=== PATIENT | female | born 1995 | race African-American/Black ===

== ENCOUNTER 2017-02-05 13:27 | Emergency (ER) | payer MEDICAID ==
--- NOTE | 2017-02-05 14:01 | ER Document Report ---
ED Medical Screen (RME) - General Chief Complaint: Vaginal Pain Stated Complaint: PAIN IN BUTTOCK Time Seen by Provider: 02/05/17 13:58 Notes: This 21-year-old female patient comes emergency room complaining of lower abdominal pain for couple days it got worse today. She reports she had a discharge 1-2 weeks ago. LMP was end of December or beginning of January. Also complained of right breast pain. I have greeted and performed a rapid initial assessment of this patient. A comprehensive ED assessment and evaluation of the patient, analysis of test results and completion of the medical decision making process will be conducted by additional ED providers. TRAVEL OUTSIDE OF THE [place] IN LAST 30 DAYS: No Past Medical History Renal/ Medical History: Denies: Hx Peritoneal Dialysis Physical Exam - Vital signs Vitals: Temp Pulse Resp BP Pulse Ox 98.7 F 90 16 114/83 99 02/05/17 13:44 02/05/17 13:44 02/05/17 13:44 02/05/17 13:44 02/05/17 13:44 Course - Vital Signs Vital signs: Temp Pulse Resp BP Pulse Ox 98.7 F 90 16 114/83 99 02/05/17 13:44 02/05/17 13:44 02/05/17 13:44 02/05/17 13:44 02/05/17 13:44
[2017-02-05 15:14] LABS: APPEARANCE,URINE SLIGHTLY-CLOUDY; BILIRUBIN,URINE NEGATIVE (NEGATIVE); GLUCOSE, URINE NEGATIVE (NEGATIVE); KETONES,URINE NEGATIVE (NEGATIVE); LEUKOCYTE ESTERASE,URINE NEGATIVE (NEGATIVE); NITRITE,URINE NEGATIVE (NEGATIVE); PROTEIN,URINE NEGATIVE (NEGATIVE); URINE SPECIFIC GRAVITY 1.028; UROBILINOGEN,URINE NEGATIVE mg/dL (<2.0)
[2017-02-05 16:42] LABS: CHLAM PCR DETECTED (NOT DETECT)
--- NOTE | 2017-02-05 16:46 | ER Document Report ---
ED GI/ - General Chief Complaint: Vaginal Pain Stated Complaint: PAIN IN BUTTOCK Time Seen by Provider: 02/05/17 13:58 Notes: Patient is a 21-year-old female presents emergency department complaining of abdominal pain for the past 10 days. Patient states that she had unprotected intercourse 10 days ago and after that encounter had development of vaginal discharge and abdominal pain. Patient denies any pyuria, hematuria, urgency or hesitancy. Admits to nausea without vomiting. Denies any diarrhea constipation. Patient also admits to right breast tenderness without any evidence of redness, swelling, drainage. TRAVEL OUTSIDE OF THE [place] IN LAST 30 DAYS: No Past Medical History - Social History Smoking Status: Unknown if Ever Smoked Family History: Reviewed & Not Pertinent Patient has suicidal ideation: No Patient has homicidal ideation: No Renal/ Medical History: Denies: Hx Peritoneal Dialysis Review of Systems - Review of Systems Constitutional: No symptoms reported Cardiovascular: No symptoms reported Respiratory: No symptoms reported Gastrointestinal: See HPI Genitourinary: See HPI Female Genitourinary: See HPI Skin: See HPI Physical Exam - Vital signs Vitals: Temp Pulse Resp BP Pulse Ox 98.7 F 90 16 114/83 99 02/05/17 13:44 02/05/17 13:44 02/05/17 13:44 02/05/17 13:44 02/05/17 13:44 - General General appearance: Appears well, Alert In distress: None - Respiratory Respiratory status: No respiratory distress Chest status: Nontender Breath sounds: Normal Chest palpation: Normal - Cardiovascular Rhythm: Regular Heart sounds: Normal auscultation Murmur: No Pulses: Normal: Radial Normal capillary refill: Yes - Abdominal Inspection: Normal Distension: No distension Bowel sounds: Normal Tenderness: Nontender Organomegaly: No organomegaly - Genitourinary External exam: Normal. No: Lesions, Vesicles Speculum exam: Normal, Cervix closed, Vaginal discharge Vaginal bleeding: None Bimanuel exam: Normal - Skin Skin Temperature: Warm Skin Moisture: Dry Skin Color: Normal Skin Turgor: Elastic Skin irregularity: negative: Abscess, Erythema, Tender indurated area Course - Re-evaluation Re-evalutation: 02/05/17 16:46 Is a 21-year-old female hemodynamic stable, no distress afebrile. No evidence of urinary tract infection noted on urinalysis. Patient has a positive chlamydia, negative for gonorrhea. Wet mount does not show any evidence of yeast, Trichomonas with positive PPD. Patient treated for positive diagnoses. Patient educated on the sexual activity, to abstain from intercourse for the next 7 days to have her partner treated. Patient expressed understanding. - Vital Signs Vital signs: Temp Pulse Resp BP Pulse Ox 98.7 F 73 18 122/72 99 02/05/17 18:06 02/05/17 18:06 02/05/17 18:06 02/05/17 18:06 02/05/17 18:06 - Laboratory Laboratory results interpreted by me: 02/05/17 14:40 Chlamydia DNA (PCR) DETECTED H Discharge - Discharge Clinical Impression: Chlamydia, Bacterial vaginosis Condition: Good Disposition: HOME, SELF-CARE Instructions: Chlamydia ([facility]) Additional Instructions: VAGINITIS: Your exam shows that you have vaginitis, a vaginal infection. The infection can be caused by a many different organisms, including trichomonas or Gardnerella. The usual symptoms are vaginal irritation and discharge. The treatment is usually antibiotics such as Flagyl. Laboratory tests can determine which germ is responsible. Use the medication as prescribed. Because this infection can be transmitted sexually, your sexual partner may need to be checked and treated also. If your physician has not discussed this with you, please check before resuming sexual relations. If a culture shows gonorrhea or chlamydia, the infection must be reported to the health department. Call the doctor if you develop pelvic pain, fever, or problems with urination, or if you don't improve as expected. VAGINOSIS, BACTERIAL: Your exam shows you have bacterial vaginosis. This condition is due to an overgrowth of bacteria in the vagina. Symptoms may include vaginal itching or pain, a smelly discharge, and sometimes burning with urination. Normally this is not transmitted by sexual contact. Vaginosis can be treated with oral or topical antibiotics. Metronidazole ( Flagyl) pills are usually effective. Topical vaginal creams include Cleocin and Metro-Gel. You should avoid sexual contact until your symptoms are all better. Call the doctor if you develop pelvic pain, fever, or problems with urination, or if you don't improve as expected. ANTIBIOTIC THERAPY: You have been given an antibiotic prescription. It's important that you take all the medication, unless instructed otherwise by your physician. Failure to complete the entire course can result in relapse of your condition. Common side effects of antibiotics include nausea, intestinal cramping, or diarrhea. Women may develop vaginal yeast infections, and babies can get yeast (thrush) in the mouth following the use of antibiotics. Contact your physician if you develop significant side effects from this medication. Allergy to this antibiotic can result in hives, wheezing, faintness, or itching. If symptoms of allergy occur, stop the medication and call the doctor. AZITHROMYCIN: Azithromycin (Zithromax) is a broad spectrum antibiotic in the same class as erythromycin. It can treat a variety of bacterial infections, but is most frequently used for respiratory infections. Azithromycin is extremely long-lasting. It accumulates in body tissues and continues to kill bacteria for many days. In order to improve absorption, Azithromycin should be taken at least one hour before or two hours after a meal. It does not have the same strong tendency to upset the stomach as erythromycin and is usually very well tolerated. Patients who have had a rash or other true allergic reactions to erythromycin should not take this medication. Call if you develop gastrointestinal distress, severe diarrhea, rash, hives, itching, or shortness of breath. METRONIDAZOLE: Metronidazole (Flagyl) has been prescribed. This medication is used to kill a type of bacteria called anaerobes, and protozoan parasites such as trichomonas and Giardia. Flagyl often causes a metallic taste in the mouth and mild nausea. Do not use alcohol in any form with Flagyl (including alcohol in medication elixirs). Flagyl interacts with alcohol to cause flushing, palpitations, headache, stomach cramps, and vomiting. Do not use Flagyl if you are taking Antabuse (disulfiram). Call the doctor at once if you develop rash, shortness of breath, itching, or lightheadedness. FOLLOW-UP CARE: If you have been referred to a physician for follow-up care, call the physician s office for an appointment as you were instructed or within the next two days. If you experience worsening or a significant change in your symptoms, notify the physician immediately or return to the Emergency Department at any time for re-evaluation. Prescriptions: Metronidazole [Flagyl 500 mg Tablet] 500 mg PO Q12H 7 Days Referrals: CHANDRIKA HINOJOSA MD [ACTIVE STAFF] - Follow up as needed
[2017-02-05] MEDS ORDERED: METRONIDAZOLE 500 MG TABLET PO ONE (17:38)
[2017-02-05] MEDS ORDERED: LIDOCAINE 1% INJ-PF (10 MG/ML) 30 ML SDV INJ ONE (17:38)
[2017-02-05] MEDS ORDERED: CEFTRIAXONE INJ 250 MG VIAL IM ONE (17:38)
[2017-02-05] MEDS ORDERED: AZITHROMYCIN 1 GM SUSP PACKET PO ONE (17:38)
[2017-02-05 18:09] VITALS: BP 122/72
== END 2017-02-05 18:08 | disposition home or self-care (01) ==
LOC: ER 13:27
DX: A56.02 Chlamydial vulvovaginitis (principal); R10.30 Lower abdominal pain, unspecified; R11.0 Nausea; N64.59 Other signs and symptoms in breast
CPT/HCPCS: 99283; 96372; 87210; 81025; 81001; 87491; 87591; J3490; Q0144; J0696